=== PATIENT | female | born 2000 | race African-American/Black ===

== ENCOUNTER 2019-09-15 12:44 | Emergency (ER) | payer MEDICAID ==
[~2019-09-15] VITALS: Ht 172.7 cm; Wt 81.6 kg
[2019-09-15 12:55] VITALS: BP 137/105
--- NOTE | 2019-09-15 12:55 | NUR ---
PT AMBULATED TO RESTROOM FOR COLLECTION OF URINE
--- NOTE | 2019-09-15 13:06 | NUR ---
19 Y/O FEMALE FROM HOME C/O VAGINAL BLEEDING X 4 DAYS. PT STATES SHE WAS SEEN AT [facility] 2 DAYS AGO FOR THEATENED MISCARRIAGE. STATES BLEEDING HAS DECREASED, SPOTTING OCCASSIONALLY AT THIS TIME. DENIES PAIN. STATES SHE HAD IN MAY, LMP 08/01/2019. ABD SOFT, FLAT, NONTENDER. INCREASED BP AT THIS TIME. POSITIONED FOR COMFORT. MEDHX: DENIES ALLERGIES: NKA
--- NOTE | 2019-09-15 13:30 | NUR ---
DR WOOD AT BEDSIDE EXAMINING PT
[2019-09-15 13:48] LABS: BASOPHILS % (AUTO) 0.9 % (0.0-2.0); EOSINOPHILS # (AUTO) 0.2 K/uL (0-0.4); EOSINOPHILS % (AUTO) 4.5 % (0.0-4.0); HEMATOCRIT 39.5 % (36-48); HEMOGLOBIN 12.8 g/dL (12.0-16.0); LYMPHOCYTES # (AUTO) 1.4 K/uL (2.5-16.5); LYMPHOCYTES % (AUTO) 34.7 % (20.5-51.1); MEAN CORPUSCULAR HEMOGLOBIN 27 pg (27-31); MEAN CORPUSCULAR HGB CONC 32 g/dL (33-37); MEAN CORPUSCULAR VOLUME 82.7 fL (80-94); MONOCYTES # (AUTO) 0.4 K/uL (0.8-1.0); MONOCYTES % (AUTO) 9.3 % (1.7-9.3); NEUTROPHILS % (AUTO) 50.6 % (42.2-75.2); PLATELET COUNT (AUTO) 260 K/uL (140-450); RED BLOOD CELL COUNT(AUTO) 4.78 MIL/uL (4.20-5.40); RED CELL DISTRIBUTION WIDTH 14.3 % (11.6-13.7); WHITE BLOOD COUNT (AUTO) 3.9 K/uL (4.8-10.8)
[2019-09-15 13:51] LABS: APPEARANCE,URINE HAZY (CLEAR); BILIRUBIN,URINE NEGATIVE (NEGATIVE); BLOOD, URINE 2+ (NEGATIVE); COLOR,URINE YELLOW (YELLOW); LEUKOCYTE ESTERASE ,URINE NEGATIVE (NEGATIVE); NITRITE, URINE NEGATIVE (NEGATIVE); UGLUCOSE NEGATIVE (NEGATIVE)
--- NOTE | 2019-09-15 13:58 | NUR ---
PT SITTING UPRIGHT AWAKE AND ALERT ON CELL PHONE. RR EVEN AND UNLABORED. VSS. WILL CONTINUE TO MONITOR
[2019-09-15 14:08] LABS: WBC,URINE 0-5 /HPF (0-5)
--- NOTE | 2019-09-15 14:15 | NUR ---
ULTRASOUND AT BEDSIDE
--- NOTE | 2019-09-15 14:42 | NUR ---
RESTING IN BED ON CELL PHONE, CALM AND PLEASANT. NO COMPLAINTS AT THIS TIME. VSS. WILL CONTINUE TO MONITOR
[2019-09-15 15:05] VITALS: BP 120/62
--- NOTE | 2019-09-15 15:05 | NUR ---
Patient discharged with v/s stable. Written and verbal after care instructions given and explained. Patient verbalized understanding. Ambulatory with steady gait. All questions addressed prior to discharge. Advised to follow up with PMD.
== END 2019-09-15 15:05 | disposition home or self-care (01) ==
LOC: MED 12:44
DX: O03.9 Complete or unspecified spontaneous abortion without complication (principal); F12.90 Cannabis use, unspecified, uncomplicated
CPT/HCPCS: 36415; 76817; 76856; 81001; 81025; 84702; 85025; 86900; 86901; 99285; Q0092

== ENCOUNTER 2020-03-14 11:07 | Emergency (ER) | payer MEDICAID, OTHER ==
[~2020-03-14] VITALS: Ht 165.1 cm; Wt 59.4 kg
[2020-03-14 11:14] VITALS: BP 129/72
--- NOTE | 2020-03-14 11:17 | NUR ---
PT TAKEN TO BED 12.
--- NOTE | 2020-03-14 11:17 | NUR ---
Mariam garcia in [facility] - 03/14/20 at 1123 by [facility] PT TAKEN TO BED 8.
--- NOTE | 2020-03-14 11:26 | NUR ---
20 y/o female "feeling ", nausea, and spotting. Pt states her LMP was 01/13/20, noted spotting on 02/05/20, and on 03/09/20 noted spotting with mild cramping 3/10 to suprapubic area. Denies PMH NKA
--- NOTE | 2020-03-14 11:33 | NUR ---
Pt stated she is unable to void at the moment, provided water.
--- NOTE | 2020-03-14 11:46 | NUR ---
Pt ambulated to bathroom for UA collection.
--- NOTE | 2020-03-14 12:23 | NUR ---
Lab at bedside for blood draw.
--- NOTE | 2020-03-14 14:19 | NUR ---
Female Transit Planning Director Marie EMT accompanied female patient for U/S Exam.
--- NOTE | 2020-03-14 15:13 | NUR ---
Left without discharge instructions.
== END 2020-03-14 15:13 | disposition home or self-care (01) ==
LOC: MED 11:07
DX: N93.9 Abnormal uterine and vaginal bleeding, unspecified (principal); R11.0 Nausea
CPT/HCPCS: 36415; 76856; 81002; 81025; 84702; 99284